=== PATIENT | female | born 1955 | race Caucasian/White ===

== ENCOUNTER → 2017-12-04 | Outpatient (CLI) | payer OTHER ==
[~2017-12-04] MED LIST: ACCOLATE10 MG PO; ADVAIR 250-501 EACH INH; ADVAIRDISKUS; AMLODIPINE BESYL5 MG PO; COMBIVENT INH; COMBIVENT RESPIM4 GM INH; FOLIC ACID1 MG PO; METHOTREXATE 22.5 MG PO; NAPROSYN500 MG PO; NORCO 5-325 TA1 EACH PO; PREDNISONE 10 M10 MG; PREDNISONE 20 M20 MG PO; PREDNISONE 5 MG5 M1 PO; SINGULAIR 10 MG10 M1 PO; TYLENOL325 MG PO; ZPAK PO
[2017-12-04 08:16] LABS: CREATININE 0.7 mg/dL (0.6-1.0)
== END ==
LOC: CAT 07:32
PROVIDERS: Internal Medicine Pulmonary Disease
DX: J84.10 Pulmonary fibrosis, unspecified (principal); R59.0 Localized enlarged lymph nodes; R59.9 Enlarged lymph nodes, unspecified; R91.8 Other nonspecific abnormal finding of lung field

== ENCOUNTER → 2018-03-18 | Outpatient (CLI) | payer OTHER | LOC: CAT 06:31 | DX: R59.0 Localized enlarged lymph nodes (principal); M47.814 Spondylosis without myelopathy or radiculopathy, thoracic region; I70.0 Atherosclerosis of aorta; J43.9 Emphysema, unspecified ==

== ENCOUNTER → 2018-11-20 | Outpatient (CLI) | payer OTHER | LOC: CAT 09:56 | DX: J98.4 Other disorders of lung (principal); R91.8 Other nonspecific abnormal finding of lung field; R59.0 Localized enlarged lymph nodes ==

== ENCOUNTER → 2021-05-30 | Outpatient (CLI) | payer OTHER ==
[~2021-05-30] VITALS: Ht 170.2 cm; Wt 85.7 kg
[~2021-05-30] MED LIST changes: +ALBUTEROL2.5 MG/3 M INH; +ASA81BEC PO; +ATROVENT HFA14 GM INH; +BREZTRI AEROS10.7 GM INH; +CARTIA XT240 M1 PO; +COZAAR 25 MG TA25 M2 PO; +ELIQUIS5 MG PO; +LIPITOR40 MG PO; +METHOTREXATE 22.5 M1 PO; +MULTAQ 400 MG400 MG PO; +PREDNISONE 10 M10 MG PO; +SINGULAIR 10 MG10 MG PO
[2021-05-30 09:40] VITALS: BP 167/64
--- NOTE | 2021-06-05 12:07 | PATH ---
[facility] [address] [place] [address] PATHOLOGY RPT PROCEDURE Name: MAGDA HOSKINS Room #: [facility] Christopher#: [id number] Admission: 05/30/21 Date of : 57 Discharge: Report #: [id number] Path Case #: [id number] Note [facility] Accession Number: [id number] TESTS RESULT FLAG UNITS REF RANGE LAB Clinician Provided Cytology Information No. of containers..01 Other (Miscellaneous) Source: CYRIL BAL DIAGNOSIS: CYRIL BAL NEGATIVE FOR MALIGNANT EPITHELIAL CELLS. PULMONARY MACROPHAGES PRESENT, INDICATIVE OF LOWER RESPIRATORY TRACT SAMPLING. NORMAL BRONCHIAL CELLS ARE PRESENT. Pathologist ICD10: 02 R91.8 Signed out by: Suha Fisher MD, Pathologist NPI- [id number] Performed by: [employer] ([facility]) Gross description: 01 10ML, CLEAR RED, 1 TP /LCS 06/04/2021 1431 Local FLAG LEGEND: L-Low Normal,H-High Normal,LL-Alert Low,HH-Alert High <-Panic Low,>-Panic High,A-Abnormal,AA-Critical Abnormal Performed at: [address] [place] [address] Harsh Dominguez MD, [address] [address] Suha Fisher MD, Specimen Comment: A courtesy copy of this report has been sent to [phone], [phone]- Specimen Comment: [phone] Specimen Comment: Report sent to / DR BELLA Performed at: [address], [place], [place] [id number] MD Harsh Dominguez MD Phone: [phone]
== END | disposition home or self-care (01) ==
LOC: PUL 07:54
PROVIDERS: ATTEND Pediatrics
DX: J98.19 Other pulmonary collapse (principal); R91.8 Other nonspecific abnormal finding of lung field; J43.9 Emphysema, unspecified; I10 Essential (primary) hypertension; E78.5 Hyperlipidemia, unspecified; Z98.890 Other specified postprocedural states; Z79.899 Other long term (current) drug therapy; Z87.891 Personal history of nicotine dependence; Z96.652 Presence of left artificial knee joint
CPT/HCPCS: 62110; 62900; 70005

== ENCOUNTER → 2021-11-29 | Outpatient (CLI) | payer OTHER | LOC: CAT 10:37 | PROVIDERS: ATTEND Pediatrics | DX: R91.1 Solitary pulmonary nodule (principal); I25.10 Atherosclerotic heart disease of native coronary artery without angina pectoris ==